=== PATIENT | female | born 1965 | race Caucasian/White ===

== ENCOUNTER 2018-08-04 15:38 | Emergency (ER) | payer OTHER ==
[~2018-08-04] VITALS: Ht 154.9 cm; Wt 69.1 kg
[2018-08-04] MEDS ORDERED: LEVO25TA9 PO (15:55)
[2018-08-04] MEDS ORDERED: METHOCARBAMOL 500 MG TABLET PO ONE (16:30)
[2018-08-04] MEDS ORDERED: KETOROLAC TROMETHAMINE 60 MG/2 ML VIAL IM ONE (16:30)
[2018-08-04 17:16] VITALS: BP 129/81
== END 2018-08-04 18:14 | disposition home or self-care (01) ==
LOC: EMS 15:40
DX: S13.4XXA Sprain of ligaments of cervical spine, initial encounter (principal); S60.221A Contusion of right hand, initial encounter; E03.9 Hypothyroidism, unspecified; V49.49XA Driver injured in collision with other motor vehicles in traffic accident, initial encounter; Y93.89 Activity, other specified; Y92.89 Other specified places as the place of occurrence of the external cause; Y99.8 Other external cause status
CPT/HCPCS: 72040; 73130; 96372; 99283; J1885